=== PATIENT | male | born 1985 | race Caucasian/White ===

== ENCOUNTER → 2016-05-19 | Outpatient (CLI) | payer OTHER ==
[2016-05-19 14:07] LABS: CHLORIDE,CL 106 mmol/L (98-110); SODIUM,NA 141 mmol/L (136-146)
== END | disposition home or self-care (01) ==
LOC: MW.CHFP 12:55
PROVIDERS: ATTEND Student in an Organized Health Care Education/Training Program
DX: R19.5 Other fecal abnormalities (principal); R68.83 Chills (without fever)
CPT/HCPCS: 36415; 80053; 81001; 85025

== ENCOUNTER 2017-06-10 08:53 | Emergency (ER) | payer OTHER ==
[2017-06-10] MEDS ORDERED: Ketorolac 30 MG/ML SDV IVPUSH ONE (08:57)
[2017-06-10] MEDS ORDERED: Sodium Chloride 0.9% 2.5 ML Syringe FLUSH PRN (08:57)
[2017-06-10] MEDS ORDERED: Ondansetron 4 MG/2 ML SDV IVPUSH ONE (08:57)
[2017-06-10] MEDS ORDERED: Sodium Chloride 0.9% 10 ML Syringe FLUSH PRN (08:57)
[2017-06-10] MEDS ORDERED: Morphine 4 MG/ML Syringe IVPUSH ONE (09:03)
[2017-06-10] MEDS ORDERED: HYDROmorphone 2 MG/ML Syringe IVPUSH ONE (09:44)
[2017-06-10] MEDS ORDERED: HYDROmorphone 1 MG/ML Syringe IVPUSH ONE (09:47)
[2017-06-10] MEDS ORDERED: Metoclopramide 10 MG/2 ML SDV IV ONE (09:52)
--- NOTE | 2017-06-10 10:42 | CT ---
CT of the abdomen and pelvis without contrast. HISTORY: Right flank pain TECHNIQUE: Axial CT images were obtained of the abdomen and pelvis without contrast. Coronal and sagi ttal reconstructions obtained. FINDINGS: The lung bases are clear, no pleural effusion. The liver, spleen, adrenal glands, and pancreas appear unremarkable for noncontrast examination. The gallbladder appears normal. There is no bulky retroperitoneal lymphadenopathy. No abdominal ascites. There is a 2 mm stone at the right ureterovesicular junction with minimal proximal hydronephrosis. Th ere is likely inspissated urine within the calyces. The large and small bowel are normal in caliber without evidence of obstruction. The appendix appears normal. There is no bulky pelvic lymphadenopathy. No free fluid. No free air. The urinary bladder ap pears normal. The visualized osseous structures appear normal. IMPRESSION: 1. There is a 2 mm stone at the right ureterovesicular junction with minimal proximal hydronephrosis.
--- NOTE | 2017-06-10 10:50 | EDM.PDOC ---
ED HPI GENERAL MEDICAL PROBLEM - General Chief Complaint: Flank Pain Stated Complaint: LOWER BACK PAIN,PAINFUL URINATION Time Seen by Provider: 06/10/17 09:00 Source of Information: Reports: Patient History Limitations: Reports: No Limitations - History of Present Illness INITIAL COMMENTS - FREE TEXT/NARRATIVE: History of present illness: []Patient awoke this morning with burning the tip of his penis and severe right flank pain. He went to the bathroom and had pain with urination. Pain Worsening and he then started vomiting. Patient has not felt this in the past patient denies any blood in his urine others, chills or diarrhea. Review of systems: As per history of present illness and below otherwise all systems reviewed and negative. Past medical history: As per history of present illness and as reviewed below otherwise noncontributory. Surgical history: As per history of present illness and as reviewed below otherwise noncontributory. Social history: No reported history of drug or alcohol abuse. Family history: As per history of present illness and as reviewed below otherwise noncontributory. Physical exam: General: Well developed, well nourished in NAD HEENT: Atraumatic, normocephalic, pupils reactive, negative for conjunctival pallor or scleral icterus, mucous membranes moist, throat clear, neck supple, nontender, trachea midline. Lungs: Clear to auscultation, breath sounds equal bilaterally, chest nontender. Heart: S1S2, regular, negative for clicks, rubs, or JVD. Abdomen: Soft, nondistended, nontender no rebound or guarding. Negative for masses or hepatosplenomegaly. Right costovertebral tenderness. Pelvis: Stable nontender. Genitourinary: Deferred. Rectal: Deferred. Extremities: Atraumatic, negative for cords or calf pain. Neurovascular unremarkable. Neuro: Awake, alert, oriented. Cranial nerves II through XII unremarkable. Cerebellum unremarkable. Motor and sensory unremarkable throughout. Exam nonfocal. Diagnostics: []UA positive for large occult blood CT shows 2 mm stone right UVJ with minimal hydronephrosis Therapeutics: []Toradol, morphine, Dilaudid, Zofran and Reglan and while in the ED. Impression: []Ureterolithiasis Plan: []Increase fluids, Motrin for pain, Flomax follow-up with primary care return to ER if symptoms worsen or change Definitive disposition and diagnosis as appropriate pending reevaluation and review of above. Right Flank Pain Score (Numeric/FACES): 10 - Related Data Allergies Allergy/AdvReac Type Severity Reaction Status Date / Time No Known Allergies Allergy Verified 05/23/14 13:52 Home Meds: Home Meds Citalopram Hydrobromide [Citalopram HBr] 20 mg PO DAILY PRN 05/23/14 [History] Esomeprazole [NexIUM] 40 mg PO DAILY PRN 05/23/14 [History] Tamsulosin HCl [Flomax] 0.4 mg PO DAILY #14 cap.er.24h 06/10/17 [Rx] Past Medical History - Past Health History Medical/Surgical History: Denies Medical/Surgical History Psychiatric History: Reports: Anxiety Social & Family History - Family History Family Medical History: Noncontributory - Tobacco Use Smoking Status *Q: Never Smoker - Caffeine Use Caffeine Use: Reports: Coffee - Alcohol Use Days Per Week of Alcohol Use: 1 Number of Drinks Per Day: 1 Total Drinks Per Week: 1 - Recreational Drug Use Recreational Drug Use: No Drug Use in Last 12 Months: No ED ROS GENERAL - Review of Systems Review Of Systems: See Below (History of present illness) ED EXAM, RENAL/ - Physical Exam Exam: See Below (See history of present illness) Course - Vital Signs Last Recorded V/S: Last Vital Signs Temp 95.9 F 06/10/17 08:57 Pulse 68 06/10/17 10:02 Resp 14 06/10/17 10:02 BP 164/98 H 06/10/17 08:57 Pulse Ox 100 06/10/17 10:02 - Orders/Labs/Meds Orders: Active Orders 24 hr Category Date Time Status UA W/MICROSCOPIC [URIN] Stat Lab 06/10/17 09:10 Ordered Sodium Chloride 0.9% [Saline Flush] Med 06/10/17 08:57 Active 10 ml FLUSH ASDIRECTED PRN Sodium Chloride 0.9% [Saline Flush] Med 06/10/17 08:57 Active 2.5 ml FLUSH ASDIRECTED PRN Saline Lock Insert [OM.PC] Stat Oth 06/10/17 08:57 Ordered Medication Orders Sodium Chloride (Saline Flush) 10 ml FLUSH ASDIRECTED PRN PRN Reason: Keep Vein Open Sodium Chloride (Saline Flush) 2.5 ml FLUSH ASDIRECTED PRN PRN Reason: Keep Vein Open Labs: Laboratory Tests 06/10/17 Range/Units 09:10 Urine Color YELLOW Urine Appearance CLEAR Urine pH 6.0 (5.0-8.0) Ur Specific [place] 1.025 (1.001-1.035) Urine Protein 30 (NEGATIVE) mg/dL Urine Glucose (UA) NEGATIVE (NEGATIVE) mg/dL Urine Ketones NEGATIVE (NEGATIVE) mg/dL Urine Occult Blood LARGE H (NEGATIVE) Urine Nitrite NEGATIVE (NEGATIVE) Urine Bilirubin NEGATIVE (NEGATIVE) Urine Urobilinogen 0.2 (<2.0) EU/dL Ur Leukocyte Esterase NEGATIVE (NEGATIVE) Urine RBC 75-80 (0-2/HPF) Urine WBC 0-1 (0-5/HPF) Ur Epithelial Cells RARE (NONE-FEW) Urine Bacteria FEW (NEGATIVE) Urine Mucus LIGHT (NONE-MOD) Meds: Medications Generic Name Dose Route Start Last Admin Trade Name Freq PRN Reason Stop Dose Admin Sodium Chloride 10 ml 06/10/17 08:57 Saline Flush FLUSH ASDIRECTED PRN Keep Vein Open Sodium Chloride 2.5 ml 06/10/17 08:57 Saline Flush FLUSH ASDIRECTED PRN Keep Vein Open Discontinued Medications Generic Name Dose Route Start Last Admin Trade Name Freq PRN Reason Stop Dose Admin Hydromorphone HCl 0.5 mg 06/10/17 09:47 06/10/17 09:51 Dilaudid IVPUSH 06/10/17 09:48 0.5 mg ONETIME ONE Administration Ketorolac Tromethamine 30 mg 06/10/17 08:57 06/10/17 09:10 Toradol IVPUSH 06/10/17 08:58 30 mg ONETIME ONE Administration Metoclopramide HCl 10 mg 06/10/17 09:52 06/10/17 09:56 Reglan IV 06/10/17 09:53 10 mg ONETIME ONE Administration Morphine Sulfate 4 mg 06/10/17 09:03 06/10/17 09:11 Morphine IVPUSH 06/10/17 09:04 4 mg ONETIME ONE Administration Ondansetron HCl 4 mg 06/10/17 08:57 06/10/17 09:10 Zofran IVPUSH 06/10/17 08:58 4 mg ONETIME ONE Administration Departure - Departure Time of Disposition: 10:47 Disposition: Home, Self-Care 01 Condition: Good Clinical Impression: Ureterolithiasis - Discharge Information Prescriptions: Tamsulosin HCl [Flomax] 0.4 mg PO DAILY #14 cap.er.24h Referrals: Shmuel Stallworth MD [Primary Care Provider] - Forms: ED Department Discharge Additional Instructions: The following information is given to patients seen in the emergency department who are being discharged to home. This information is to outline your options for follow-up care. We provide all patients seen in our emergency department with a follow-up referral. The need for follow-up, as well as the timing and circumstances, are variable depending upon the specifics of your emergency department visit. If you don't have a primary care physician on staff, we will provide you with a referral. We always advise you to contact your personal physician following an emergency department visit to inform them of the circumstance of the visit and for follow-up with them and/or the need for any referrals to a consulting specialist. The emergency department will also refer you to a specialist when appropriate. This referral assures that you have the opportunity for follow-up care with a specialist. All of these measure are taken in an effort to provide you with optimal care, which includes your follow-up. Under all circumstances we always encourage you to contact your private physician who remains a resource for coordinating your care. When calling for follow-up care, please make the office aware that this follow-up is from your recent emergency room visit. If for any reason you are refused follow-up, please contact the [facility] Emergency Department at and asked to speak to the emergency department charge nurse. Motrin for pain, Flomax as directed, increase fluids, follow up with primary care or return to ER if symptoms worsen or change. [facility] [address] [place] [id number] - My Orders Last 24 Hours: My Active Orders 06/10/17 08:57 Sodium Chloride 0.9% [Saline Flush] 10 ml FLUSH ASDIRECTED PRN Sodium Chloride 0.9% [Saline Flush] 2.5 ml FLUSH ASDIRECTED PRN Saline Lock Insert [OM.PC] Stat 06/10/17 09:10 UA W/MICROSCOPIC [URIN] Stat - Assessment/Plan Last 24 Hours: My Active Orders 06/10/17 08:57 Sodium Chloride 0.9% [Saline Flush] 10 ml FLUSH ASDIRECTED PRN Sodium Chloride 0.9% [Saline Flush] 2.5 ml FLUSH ASDIRECTED PRN Saline Lock Insert [OM.PC] Stat 06/10/17 09:10 UA W/MICROSCOPIC [URIN] Stat
[2017-06-10 11:05] VITALS: BP 119/73
== END 2017-06-10 11:02 | disposition home or self-care (01) ==
LOC: MW.ED 08:53
DX: N13.2 Hydronephrosis with renal and ureteral calculous obstruction (principal); Z79.899 Other long term (current) drug therapy
CPT/HCPCS: 74176; 81001; 96374; 96375; 99284; J1170; J1885; J2270; J2405; J2765; 99283

== ENCOUNTER 2021-11-20 07:14 | Day surgery (SDC) | payer OTHER ==
[~2021-11-20 07:14] MED LIST: Albuterol/Ipratropium 3.0-0.5 MG/3 ML Neb Soln ONE; Lactated Ringers 1,000 ML IV SCH; Magnesium Sulfate/Water 50 ML ONE; methylPREDNISolone Sodium Succinate 125 MG/2 ML SDV ONE
[2021-11-20] MEDS ORDERED: Propofol 200 MG/20 ML SDV ONE (07:22)
[2021-11-20] MEDS ORDERED: fentaNYL 100 MCG/2 ML SDV ONE (07:22)
[2021-11-20 13:13] VITALS: BP 120/77; PULSE 77
== END 2021-11-20 09:38 | disposition home or self-care (01) ==
LOC: MW.SDS 07:14
PROVIDERS: ATTEND Surgery
DX: K63.5 Polyp of colon (principal); F41.1 Generalized anxiety disorder; I10 Essential (primary) hypertension; K21.9 Gastro-esophageal reflux disease without esophagitis; J45.909 Unspecified asthma, uncomplicated; Z79.899 Other long term (current) drug therapy; Z98.890 Other specified postprocedural states
CPT/HCPCS: 45380; J2704; J2930; J3010; J3475; J7120; 00811; J7620-GY